=== PATIENT | male | born 1965 | race Caucasian/White ===

== ENCOUNTER 2020-02-15 12:15 | Emergency (ER) | payer BC ==
[~2020-02-15] VITALS: Ht 162.6 cm; Wt 98.9 kg
[2020-02-15 12:34] VITALS: Ht 162.6 cm; Wt 98.9 kg
[2020-02-15 15:45] VITALS: BP 119/68
== END 2020-02-15 15:45 | disposition home or self-care (01) ==
LOC: ED 12:15
DX: J20.9 Acute bronchitis, unspecified (principal); I10 Essential (primary) hypertension; Z86.2 Personal history of diseases of the blood and blood-forming organs and certain disorders involving the immune mechanism
CPT/HCPCS: 87804; Q0092